=== PATIENT | female | born 1995 | race Caucasian/White ===

== ENCOUNTER 2016-10-03 07:20 | Day surgery (SDC) | payer OTHER, MEDICAID ==
[~2016-10-03] VITALS: Ht 165.1 cm; Wt 79.4 kg
[2016-10-03] MEDS ORDERED: ONDANSETRON 4MG/2ML VIAL (J2405) As Ordered ONE ×2 (08:00→13:07)
[2016-10-03] MEDS ORDERED: KETOROLAC 30 MG/ML VIAL (J1885) As Ordered ONE (08:01)
[2016-10-03 08:14] LABS: BASO # 0.1 K/mm3 (0.0-0.2); BASO % 0.7 % (0.0-1.0); EOS # 0.2 K/mm3 (0.0-0.50); EOS % 1.1 % (0.0-3.0); LARGE UNSTAINED CELL # 0.1 K/mm3 (0.0-0.4); LARGE UNSTAINED CELL % 0.5 % (0.0-4.0); LYMPH # 1.2 K/mm3 (1.5-6.5); LYMPH % 7.9 % (24.0-44.0); MEAN CORPUSCULAR HEMOGLOBIN 30.4 pg (27.0-33.0); MEAN CORPUSCULAR HGB CONC 33.7 g/dl (32.0-36.5); MEAN CORPUSCULAR VOLUME 90.2 fl (80.0-96.0); MONO # 0.7 K/mm3 (0.0-0.8); MONO % 5.2 % (0.0-5.0); NEUTROPHILS # 12.1 K/mm3 (1.8-7.7); NEUTROPHILS % 84.7 % (36.0-66.0); PLATELET COUNT, AUTOMATED 232 k/mm3 (150-450); RED CELL DISTRIBUTION WIDTH 12.8 % (11.5-14.5); WHITE BLOOD COUNT 14.3 K/mm3 (4.0-10.0)
[2016-10-03 08:37] LABS: ALBUMIN 3.8 GM/DL (3.2-5.2); ALBUMIN/GLOBULIN RATIO 1.03 (1.00-1.93); ALKALINE PHOSPHATASE 80 U/L (45-117); ALT/SGPT 19 U/L (12-78); ANION GAP 8 MEQ/L (8-16); AST/SGOT 12 U/L (15-37); BILIRUBIN,DIRECT 0.1 MG/DL (0.0-0.2); BILIRUBIN,TOTAL 0.6 MG/DL (0.2-1.0); BLOOD UREA NITROGEN 13 MG/DL (7-18); CALCIUM LEVEL 9.1 MG/DL (8.5-10.1); CARBON DIOXIDE LEVEL 27 MEQ/L (21-32); CHLORIDE LEVEL 107 MEQ/L (98-107); CREATININE FOR GFR 0.94 MG/DL (0.55-1.02); GLUCOSE, FASTING 85 MG/DL (70-105); POTASSIUM SERUM 3.7 MEQ/L (3.5-5.1); SODIUM LEVEL 142 MEQ/L (136-145); TOTAL PROTEIN 7.5 GM/DL (6.4-8.2)
[2016-10-03] MEDS ORDERED: ISOVUE-370 76% 100ML VIAL (Q9967) As Ordered ONE (08:41)
[2016-10-03] MEDS ORDERED: MORPHINE 4 MG/ML 1ML SYRINGE As Ordered ONE (09:48)
[2016-10-03] MEDS ORDERED: ZOSYN 3.375 GM VIAL (J2543) As Ordered ONE (11:33)
[2016-10-03] MEDS ORDERED: fentaNYL 100 MCG/2 ML INJECTION (J3010) As Ordered ONE (11:37)
[2016-10-03] MEDS ORDERED: BUPIVACAINE/EPIN 0.25% 30 ML VIAL As Ordered ONE (11:53)
[2016-10-03] MEDS ORDERED: ROCURONIUM BROMIDE 50 MG/5 ML VIAL As Ordered ONE (12:01)
[2016-10-03] MEDS ORDERED: LIDOCAINE 2% INJ 100 MG/5 ML SDV (FOR ANES.) As Ordered ONE (12:01)
[2016-10-03] MEDS ORDERED: ceFAZolin 1GM INJ (J0690) As Ordered ONE (12:01)
[2016-10-03] MEDS ORDERED: PROPOFOL 200 MG/20 ML VIAL As Ordered ONE (12:01)
[2016-10-03] MEDS ORDERED: MIDAZOLAM INJ 2 MG/2 ML VIAL (J2250) As Ordered ONE (12:03)
[2016-10-03] MEDS ORDERED: SUCCINYLCHOLINE 100 MG/5 ML SYRINGE (J0330) As Ordered ONE (12:04)
[2016-10-03] MEDS ORDERED: dexameTHASONE 4 MG/ML 1ML VIAL (J1100) As Ordered ONE ×2 (12:04→12:05)
[2016-10-03] MEDS ORDERED: fentaNYL 250 MCG/5 ML INJECTION (J3010) As Ordered ONE (12:04)
--- NOTE | 2016-10-03 12:18 | EDDOCDS ---
Physician Documentation [facility] Name: Rupa Castellanos Age: 21 yrs Sex: Female : 1995 Arrival Date: 10/03/2016 Time: 07:20 Bed I3 / M3 Private MD: Disposition: 10/03/16 11:10 Hospitalization ordered by Kole Carlos for Inpatient Admission. Preliminary diagnosis is Acute appendicitis. - Bed requested for Admit. - Status is Inpatient Admission. ttb - Condition is Stable. - Problem is new. - Symptoms have improved. Historical: - Allergies: no known allergies; - Home Meds: 1. control pill daily 2. ibuprofen 1000 mg Oral tab prn (Last dose: 10/03/2016 06:30) - PMHx: none; - PSHx: none; - Social history: Smoking status: Patient states was never smoker of tobacco. No barriers to communication noted, The patient speaks fluent German. - Family history: Not pertinent. - : The pt / caregiver states he / she is not on anticoagulants. Home medication list is obtained from the patient. - Exposure Risk Screening:: None identified. 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 5 in. (165.10 cm) (R); Pain 6/10; 10:38 BP 105 / 61 RA Sitting (auto/reg); Pulse 73; Resp 20; Temp 97.9(O); Pulse Ox 98% on bnb R/A; Pain 5/10; 10:53 Resp 16; Pain 5/10; ttb 12:06 BP 98 / 62; Pulse 84; Resp 20; Temp 98.0(O); Pulse Ox 100% on R/A; Pain 4/10; jml1 07:30 Body Mass Index 29.12 (79.38 kg, 165.10 cm) jjr MDM: 07:42 NS 0.9% 1000 ml IV at bolus once ordered. cc10 07:42 Ondansetron 4 mg IVP once ordered. cc10 07:42 ketorolac 30 mg IVP once ordered. cc10 07:42 IV Saline Lock ordered. cc10 07:42 Undress patient appropriately for examination ordered. cc10 07:42 UCG by Nursing ordered. cc10 07:43 Basic Metabolic Profile Ordered. EDMS 07:43 CBC with Diff Ordered. EDMS 07:43 Lipase Ordered. EDMS 07:43 Liver Profile Ordered. EDMS 07:43 Urinalysis Ordered. EDMS 07:44 NOTHING BY MOUTH+DIET ordered. EDMS 08:15 Financial registration complete. mm15 08:28 CBC with Diff Reviewed. cc10 08:28 Urinalysis Reviewed. cc10 08:32 CT ABD & PELVIS: IV Contrast Only Ordered. EDMS 08:41 [facility] [place] was scanned into [employer] and attached to record. mm15 08:41 Liver Profile Reviewed. cc10 08:41 Basic Metabolic Profile Reviewed. cc10 08:41 Lipase Reviewed. cc10 09:46 morphine 4 mg IVP once ordered. cc10 11:05 BED REQUEST+ADM ordered. EDMS 11:23 Piperacillin-Tazobactam 3.375 grams IVPB once over 30 mins; dilute in 50mL of NS or D5W cc10 ordered. 11:30 fentaNYL (PF) 25 mcg IVP once ordered. cc10 11:31 Misc. Nursing Order ordered. cc10 11:57 Admission Orders was scanned into [employer] and attached to record. mm15 12:10 LR Solution 1000 ml IV at 125 mL/hr once via Pump; Dr. Carlos instructions ordered. ttb 12:10 ceFAZolin 2 grams IVPB once over 30 mins; dilute in 50mL of NS or D5W ONCALL TO OR ttb ordered. Point of Care Testing: Urine : 07:46 hCG Reading: Negative; Control Reading: Positive; bnb Ranges: Administered Medications: 08:06 Drug: NS 0.9% 1000 ml [sodium chloride 0.9 % intravenous solution] Route: IV; Rate: jjr bolus; Site: left antecubital; : Follow up: Response: No Adverse Reaction; IV Status: Completed infusion; IV Intake: ttb 1000ml 08:06 Drug: Ondansetron 4 mg [ondansetron HCl 2 mg/mL intravenous solution (2 mL)] Route: jjr IVP; Site: left antecubital; :52 Follow up: Response: Nausea is resolved; No Adverse Reaction ttb 08:06 Drug: ketorolac 30 mg [ketorolac 30 mg/mL (1 mL) injection solution (1 mL)] Route: IVP; jjr Site: left antecubital; 09:52 Follow up: Response: No Adverse Reaction ttb 09:51 Drug: morphine 4 mg [morphine 4 mg/mL intravenous cartridge (1 mL)] Route: IVP; Site: ttb left antecubital; 10:53 Follow up: Resp 16 bpm; Pain 5/10 Adult; Response: Confirmed pt not driving.; No ttb Adverse Reaction; Pain is decreased 11:45 Drug: fentaNYL (PF) 25 mcg [fentanyl (PF) 50 mcg/mL injection solution (0.5 mL)] Route: ttb IVP; Site: left antecubital; 12:12 Follow up: Response: Confirmed pt not driving.; No Adverse Reaction ttb 11:49 Drug: NS 0.9% 50 ml, Piperacillin-Tazobactam 3.375 grams Route: IVPB; Infused Over: 30 ttb mins; Site: left antecubital; Delivery: Pump; 12:16 Follow up: Response: No Adverse Reaction; IV Status: Completed infusion; IV Intake: 50mlttb 12:10 Drug: LR 1000 ml [lactated ringers intravenous solution] Route: IV; Rate: 125 mL/hr; ttb Site: left antecubital; Delivery: Pump; Signatures: Dispatcher [employer] Catalina Owens RN RN jjr Conner, Teresa, RN RN ttb Lacey Putnam mm15 Roni Guthrie PA-C PA-C cc10 The chart was reviewed and I authenticate all verbal orders and agree with the evaluation and treatment provided.Attachments: 08:41 [facility] Payment Agreement mm15 11:57 Admission Orders mm15 MTDD
--- NOTE | 2016-10-03 12:19 | EDDOCDS ---
Nurse's Notes [facility] Name: Rupa Castellanos Age: 21 yrs Sex: Female : 1995 Arrival Date: 10/03/2016 Time: 07:20 Bed I3 / M3 Private MD: Diagnosis: Acute appendicitis Presentation: 10/03 07:24 Presenting complaint: Patient states: yesterday while moving developed substernal chest jjr pain radiating to anterior chest sharp intermittent since then, RLQ pain began yesterday evening sharp in nature reports nausea began 0100 with one episode of vomiting reports diarrhea yesterday and this morning. Risk factors: the patient reports no vaginal bleeding. Adult Sepsis Screening: The patient does not have new or worsening altered mentation. Patient's respiratory rate is less than 22. Systolic blood pressure is greater than 100. Patient has a qSOFA score of 0- Negative Sepsis Screen. Suicide/Homicide risk assessment- the patient denies having any suicidal and/or homicidal ideations and does not present with any other emotional, behavioral or mental health complaints. Status: Patient is not a pool servicer or dependent. Transition of care: patient was not received from another setting of care. 07:24 Acuity: NADIRA Level 3 jjr 07:24 Method Of Arrival: Walkin/Carried/Asstd jjr Triage Assessment: 07:31 General: Appears in no apparent distress. Pain: Location: right lower quadrant. Pt jjr Declines HIV testing. GI: Reports diarrhea, lower abdominal pain, nausea, vomiting. 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 control pill daily 2. ibuprofen 1000 mg Oral tab prn (Last dose: 10/03/2016 06:30) - PMHx: none; - PSHx: none; - Social history: Smoking status: Patient states was never smoker of tobacco. No barriers to communication noted, The patient speaks fluent Maori. - Family history: Not pertinent. - : The pt / caregiver states he / she is not on anticoagulants. Home medication list is obtained from the patient. - Exposure Risk Screening:: None identified. Screenin:06 Screening information is obtained from the patient. Fall risk: No risks identified. jjr Assistance ADL's: requires no assistance with activities of daily living. Abuse/DV Screen: The patient / caregiver reports he/she is: not in a situation that causes fear, pain or injury. Nutritional screening: No deficits noted. Advance Directives: There is no active DNR order. home support is adequate. Assessment: 07:57 General: Appears in no apparent distress, well nourished, well groomed, Behavior is jjr appropriate for age. Pain: Aggravated by increased activity. Neurological: No deficits noted. Respiratory: No deficits noted. GI: Abdomen is non- distended Bowel sounds present X 4 quads. Abd is soft X 4 quads Abd is tender to palpation in umbilical area and right lower quadrant. GI: Reports lower abdominal pain, nausea. Derm: No deficits noted. 08:57 General: Appears in no apparent distress, denies any chest pain since arrival, RLQ pain jjr more pressure in nature at this time. 09:36 General: report taken from ROBERT Arnold to continue care. Pt resting on stretcher, on ttb phone. NAD noted. . General: Appears in no apparent distress, comfortable, well nourished, well groomed, Behavior is appropriate for age, pleasant. Neurological: No deficits noted. Level of Consciousness is awake, alert. Respiratory: No deficits noted. Airway is patent. 09:52 General: Appears in no apparent distress, comfortable, pt given morphine per request. ttb States mother is going to come get her. . Neurological: No deficits noted. Cardiovascular: Chest pain is denied. Respiratory: Airway is patent Respiratory effort is even, unlabored, Breath sounds are clear bilaterally. Denies cough, shortness of breath. GI: Denies nausea. Injury Description: No known injury. 10:45 General: Appears in no apparent distress, comfortable. Pain: Location: RLQ abd improved ttb after morphine. Neurological: Level of Consciousness is awake, alert. Respiratory: No deficits noted. 10:45 Adult Sepsis Screening: The patient does not have new or worsening altered mentation. ttb Patient's respiratory rate is less than 22. Systolic blood pressure is greater than 100. Patient has a qSOFA score of 0- Negative Sepsis Screen. 11:45 Reassessment: Patient appears in no apparent distress at this time. pt signed consents ttb signed and pt is awaiting transfer to OR. Pt given meds as ordered. Aware NPO still. . 11:45 General: Appears in no apparent distress, comfortable. Neurological: Level of ttb Consciousness is awake, alert. Respiratory: No deficits noted. 12:14 Reassessment: Patient appears in no apparent distress at this time. Patient states ttb feeling better. pain improved after meds. Pt transferred to OR at this time.. General: Appears in no apparent distress, comfortable. Neurological: Level of Consciousness is awake, alert. Cardiovascular: Chest pain is denied. Respiratory: No deficits noted. Airway is patent Respiratory effort is even, unlabored. GI: Denies nausea, vomiting. Vital Signs: 07:30 BP 124 / 71; Pulse 102; Resp 18; Temp 97.6(O); Pulse Ox 96% on R/A; Weight 79.38 kg jjr (R); Height 5 ft. 5 in. (165.10 cm) (R); Pain 6/10; 10:38 BP 105 / 61 RA Sitting (auto/reg); Pulse 73; Resp 20; Temp 97.9(O); Pulse Ox 98% on bnb R/A; Pain 5/10; 10:53 Resp 16; Pain 5/10; ttb 12:06 BP 98 / 62; Pulse 84; Resp 20; Temp 98.0(O); Pulse Ox 100% on R/A; Pain 4/10; jml1 07:30 Body Mass Index 29.12 (79.38 kg, 165.10 cm) [facility] Vitals: 07:27 Log In Time: October 03, 2016 at 07:20. [facility] ED Course: 07:22 Patient visited by Arlet Mckinley Reg. hs2 07:22 Patient moved to Waiting hs2 07:27 Triage Initiated jjr 07:34 Catalina Sparks, ROBERT is Primary Nurse. jjr 07:34 Patient moved to I3 / M3 jjr 07:37 Roni Guthrie PA-C is PHCP. cc10 07:37 Odalis Contreras MD is Attending Physician. cc10 07:37 Patient visited by Roni Guthrie PA-C. cc10 07:37 Patient visited by Roni Guthrie PA-C. cc10 07:52 Patient visited by Jayla Chaney PCA. bnb 07:52 Urinalysis Sent. bnb 07:57 Basic Metabolic Profile Sent. jjr 07:57 CBC with Diff Sent. jjr 07:57 Lipase Sent. jjr 07:57 Liver Profile Sent. jjr 07:58 Patient visited by Catalina Sparks, RN. jjr 07:58 The patient / caregiver is instructed regarding the plan of care and ED course. jjr 07:58 Inserted saline lock: 20 gauge in left antecubital area and blood collected. Labs jjr drawn. (by ED staff). Sent per order to lab. Urine collected. Clean catch specimen. Urine specimen sent to lab. 08:41 [place] [place] was [place] into [employer] and attached to record. mm15 08:50 Patient visited by Tutu Ceballos. jml1 08:58 Patient visited by Catalina Sparks, ROBERT. jjr 09:23 Patient name changed from Rupa\S\\S\Castellanos\S\ to Rupa\S\ \S\Castellanos. EDMS 09:36 Patient visited by Albina Neves RN. ttb 09:36 Patient has correct armband on for positive identification. ttb 09:36 No procedures done that require assistance. ttb 09:37 Patient visited by lAbina Neves RN. ttb 09:53 Patient visited by Albina Neves RN. ttb 10:39 Patient visited by Jayla Chaney PCA. bnb 11:10 Kole Carlos DO is Hospitalizing Provider. cc10 11:52 Patient visited by Albina Neves RN. ttb 11:57 Admission Orders was scanned into [employer] and attached to record. mm15 12:07 Patient visited by Tutu Ceballos. jml1 Administered Medications: 08:06 Drug: NS 0.9% 1000 ml [sodium chloride 0.9 % intravenous solution] Route: IV; Rate: jjr bolus; Site: left antecubital; :52 Follow up: Response: No Adverse Reaction; IV Status: Completed infusion; IV Intake: ttb 1000ml 08:06 Drug: Ondansetron 4 mg [ondansetron HCl 2 mg/mL intravenous solution (2 mL)] Route: jjr IVP; Site: left antecubital; :52 Follow up: Response: Nausea is resolved; No Adverse Reaction ttb 08:06 Drug: ketorolac 30 mg [ketorolac 30 mg/mL (1 mL) injection solution (1 mL)] Route: IVP; jjr Site: left antecubital; 09:52 Follow up: Response: No Adverse Reaction ttb 09:51 Drug: morphine 4 mg [morphine 4 mg/mL intravenous cartridge (1 mL)] Route: IVP; Site: ttb left antecubital; 10:53 Follow up: Resp 16 bpm; Pain 5/10 Adult; Response: Confirmed pt not driving.; No ttb Adverse Reaction; Pain is decreased 11:45 Drug: fentaNYL (PF) 25 mcg [fentanyl (PF) 50 mcg/mL injection solution (0.5 mL)] Route: ttb IVP; Site: left antecubital; 12:12 Follow up: Response: Confirmed pt not driving.; No Adverse Reaction ttb 11:49 Drug: NS 0.9% 50 ml, Piperacillin-Tazobactam 3.375 grams Route: IVPB; Infused Over: 30 ttb mins; Site: left antecubital; Delivery: Pump; 12:16 Follow up: Response: No Adverse Reaction; IV Status: Completed infusion; IV Intake: 50mlttb 12:10 Drug: LR 1000 ml [lactated ringers intravenous solution] Route: IV; Rate: 125 mL/hr; ttb Site: left antecubital; Delivery: Pump; Point of Care Testing: Urine : 07:46 hCG Reading: Negative; Control Reading: Positive; bnb Ranges: Intake: 09:52 IV: 1000.00ml; Total: 1000.00ml. ttb 12:16 IV: 50.00ml; Total: 1050.00ml. ttb Order Results: Lab Order: Basic Metabolic Profile; SPEC'M 10/03/16 07:55 Test: GLUCOSE, FASTING; Value: 85; Range: 70-105; Units: MG/DL; Status: F Test: BLOOD UREA NITROGEN; Value: 13; Range: 7-18; Units: MG/DL; Status: F Test: CREATININE FOR GFR; Value: 0.94; Range: 0.55-1.02; Units: MG/DL; Status: F Test: SODIUM LEVEL; Value: 142; Range: 136-145; Units: MEQ/L; Status: F Test: POTASSIUM SERUM; Value: 3.7; Range: 3.5-5.1; Units: MEQ/L; Status: F Test: CHLORIDE LEVEL; Value: 107; Range: 98-107; Units: MEQ/L; Status: F Test: CARBON DIOXIDE LEVEL; Value: 27; Range: 21-32; Units: MEQ/L; Status: F Test: ANION GAP; Value: 8; Range: 8-16; Units: MEQ/L; Status: F Test: CALCIUM LEVEL; Value: 9.1; Range: 8.5-10.1; Units: MG/DL; Status: F Lab Order: CBC with Diff; SPEC'M 10/03/16 07:55 Test: WHITE BLOOD COUNT; Value: 14.3; Range: 4.0-10.0; Abnormal: Above high normal; Units: K/mm3; Status: F Test: RED BLOOD COUNT; Value: 4.56; Range: 4.00-5.40; Units: M/mm3; Status: F Test: HEMOGLOBIN; Value: 13.8; Range: 12.0-16.0; Units: g/dl; Status: F Test: HEMATOCRIT; Value: 41.1; Range: 36.0-47.0; Units: %; Status: F Test: MEAN CORPUSCULAR VOLUME; Value: 90.2; Range: 80.0-96.0; Units: fl; Status: F Test: MEAN CORPUSCULAR HEMOGLOBIN; Value: 30.4; Range: 27.0-33.0; Units: pg; Status: F Test: MEAN CORPUSCULAR HGB CONC; Value: 33.7; Range: 32.0-36.5; Units: g/dl; Status: F Test: RED CELL DISTRIBUTION WIDTH; Value: 12.8; Range: 11.5-14.5; Units: %; Status: F Test: PLATELET COUNT, AUTOMATED; Value: 232; Range: 150-450; Units: k/mm3; Status: F Test: NEUTROPHILS %; Value: 84.7; Range: 36.0-66.0; Abnormal: Above high normal; Units: %; Status: F Test: LYMPH %; Value: 7.9; Range: 24.0-44.0; Abnormal: Below low normal; Units: %; Status: F Test: MONO %; Value: 5.2; Range: 0.0-5.0; Abnormal: Above high normal; Units: %; Status: F Test: EOS %; Value: 1.1; Range: 0.0-3.0; Units: %; Status: F Test: BASO %; Value: 0.7; Range: 0.0-1.0; Units: %; Status: F Test: LARGE UNSTAINED CELL %; Value: 0.5; Range: 0.0-4.0; Units: %; Status: F Test: NEUTROPHILS #; Value: 12.1; Range: 1.8-7.7; Abnormal: Above high normal; Units: K/mm3; Status: F Test: LYMPH #; Value: 1.2; Range: 1.5-6.5; Abnormal: Below low normal; Units: K/mm3; Status: F Test: MONO #; Value: 0.7; Range: 0.0-0.8; Units: K/mm3; Status: F Test: EOS #; Value: 0.2; Range: 0.0-0.50; Units: K/mm3; Status: F Test: BASO #; Value: 0.1; Range: 0.0-0.2; Units: K/mm3; Status: F Test: LARGE UNSTAINED CELL #; Value: 0.1; Range: 0.0-0.4; Units: K/mm3; Status: F Lab Order: Lipase; SPEC' 10/03/16 07:55 Test: LIPASE; Value: 104; Range: 73-393; Units: U/L; Status: F Lab Order: Liver Profile; SPEC'M 10/03/16 07:55 Test: AST/SGOT; Value: 12; Range: 15-37; Abnormal: Below low normal; Units: U/L; Status: F Test: ALT/SGPT; Value: 19; Range: 12-78; Units: U/L; Status: F Test: ALKALINE PHOSPHATASE; Value: 80; Range: 45-117; Units: U/L; Status: F Test: BILIRUBIN,TOTAL; Value: 0.6; Range: 0.2-1.0; Units: MG/DL; Status: F Test: BILIRUBIN,DIRECT; Value: 0.1; Range: 0.0-0.2; Units: MG/DL; Status: F Test: TOTAL PROTEIN; Value: 7.5; Range: 6.4-8.2; Units: GM/DL; Status: F Test: ALBUMIN; Value: 3.8; Range: 3.2-5.2; Units: GM/DL; Status: F Test: ALBUMIN/GLOBULIN RATIO; Value: 1.03; Range: 1.00-1.93; Status: F Lab Order: Urinalysis; SPEC'M 10/03/16 07:45 Test: APPEARANCE, URINE; Value: CLEAR; Range: CLEAR; Status: F Test: COLOR, URINE; Value: YELLOW; Range: YELLOW; Status: F Test: PH,URINE; Value: 5.0; Range: 5.0-9.0; Units: UNITS; Status: F Test: SPECIFIC GRAVITY URINE AUTO; Value: 1.019; Range: 1.002-1.035; Status: F Test: PROTEIN, URINE AUTO; Value: 1+; Range: NEGATIVE; Abnormal: Above high normal; Units: mg/dL; Status: F Test: GLUCOSE, URINE (UA) AUTO; Value: NEGATIVE; Range: NEGATIVE; Units: mg/dL; Status: F Test: KETONE, URINE AUTO; Value: NEGATIVE; Range: NEGATIVE; Units: mg/dL; Status: F Test: UROBILINOGEN, URINE AUTO; Value: 0.2; Range: 0.0-2.0; Units: mg/dL; Status: F Test: BILIRUBIN, URINE AUTO; Value: NEGATIVE; Range: NEGATIVE; Status: F Test: NITRITE, URINE AUTO; Value: NEGATIVE; Range: NEGATIVE; Status: F Test: LEUKOCYTE ESTERASE, URINE AUTO; Value: NEGATIVE; Range: NEGATIVE; Status: F Test: BLOOD, URINE BLOOD; Value: NEGATIVE; Range: NEGATIVE; Status: F Test: WBC, URINE AUTO; Value: 1; Range: 0-3; Units: /HPF; Status: F Test: RBC, URINE AUTO; Value: 1; Range: 0-3; Units: /HPF; Status: F Test: BACTERIA, URINE AUTO; Value: NEGATIVE; Range: NEGATIVE; Status: F Test: SQUAMOUS EPITHELIAL CELL UR AU; Value: 2; Range: 0-6; Units: /HPF; Status: F Test: MUCUS, URINE; Value: SMALL; Range: NEGATIVE; Status: F Test: HYALINE CAST, URINE AUTO; Value: 0; Range: 0-1; Units: /LPF; Status: F Outcome: 09:36 CT Study completed. ttb 11:10 Decision to Hospitalize by Provider. cc10 12:14 Discharge Assessment: Patient awake, alert and oriented x 3. No cognitive and/or ttb functional deficits noted. Patient verbalized understanding of disposition instructions. Patient awake and alert. patient administered narcotics - yes. Patient was admitted to the hospital or transferred to another facility. The following High Risk Discharge criteria are identified: Yes, admit to OR at this time. SDS. Admitted to OR accompanied by nurse, accompanied by tech, family with patient, via stretcher, with chart. Condition: good Condition: stable Condition: improved. Instructed on OR process/SDS process. Admission hand-off: Other: verbal to OR staff . Property given to family member, Alex ANDRES. 12:18 Patient left the ED. ttb Signatures: Dispatcher [employer] EDCatalina Gonzáles, RN RN Tutu Suarez jml1 Albina Neves RN RN ttb Lacey Putnam mm15 Roni Guthrie, PA-C PA-C cc10 Arlet Mckinley, Reg Reg hs2 Jayla Chaney, LEATHER CRAFTER LEATHER CRAFTER bnb MTDD
[2016-10-03] MEDS ORDERED: IBUPOTC PO (12:21)
[2016-10-03] MEDS ORDERED: [UNRECOGNIZED DRUG - REMARK] PO (12:21)
[2016-10-03] MEDS ORDERED: KETOROLAC 60 MG/2 ML VIAL (J1885) As Ordered ONE (13:07)
[2016-10-03] MEDS ORDERED: SUGAMMADEX SODIUM 500 MG/5 ML VIAL (BRIDION) As Ordered ONE (13:13)
[2016-10-03] MEDS ORDERED: NORC5TAB PO (13:30)
[2016-10-03 14:15] VITALS: BP 117/73
[2016-10-03] MEDS ORDERED: ONDANSETRON 4MG/2ML VIAL (J2405) IV PRN (14:15)
[2016-10-03] MEDS ORDERED: NORCO, ANEXSIA 5/325MG TABLET (HYDROcodone/ACETAMINOPHEN) PO PRN (14:15)
[2016-10-03] MEDS ORDERED: LR 1,000 ML IV SCH (14:15)
[2016-10-03] MEDS ORDERED: fentaNYL 100 MCG/2 ML INJECTION (J3010) IV PRN (14:15)
[2016-10-03 14:45] VITALS: BP 123/73
[2016-10-03 15:45] VITALS: BP 117/71
[2016-10-03 16:45] VITALS: BP 133/72
--- NOTE | 2016-10-05 08:30 | REP ---
CT abdomen pelvis with IV contrast, without bowel contrast: The appendix is distended measuring up to 11 meters mm transverse diameter. However, there is no appendiceal wall thickening or periappendiceal inflammation or abscess. This may represent early or developing appendicitis. There is no ascites or adenopathy. The visualized lung [place] are unremarkable. The hepatic parenchyma, gallbladder, pancreas, spleen, adrenals, kidneys and abdominal aorta are unremarkable. Bowel and mesentery are unremarkable. Pelvis: There are bilateral adnexal follicles. The uterus is unremarkable. There is no ascites or adenopathy. The pelvic bowel loops are unremarkable. Impression: The appendix is distended measuring up to 11 mm transverse diameter. There is no wall thickening or periappendiceal inflammation or abscess. The finding is nonspecific but may represent developing appendicitis. Gallbladder, uterus and adnexa are unremarkable except for bilateral adnexal follicles. No ascites or adenopathy. Signed by Kole Hernandez MD 10/03/2016 09:21 A
--- NOTE | 2016-10-05 08:31 | ER ---
DATE OF CONSULTATION: 10/03/2016 Reason for consult is right lower quadrant abdominal pain. HISTORY OF PRESENT ILLNESS: Patient is a 21-year-old female who presents with right lower quadrant abdominal pain that started early this morning. She had some epigastric pain and nausea starting last evening. This morning it turned into right lower quadrant pain. She had some nausea and vomiting at home, nothing since she has been here. Pain has been getting progressively worse. It is localized to the right lower quadrant and it has been unchanged since she has been here despite pain medications. White count was slightly elevated at around 12. However, CT scan showed findings of acute appendicitis. Therefore, I was called to evaluate the patient. On exam, patient has tenderness in the right lower quadrant. Denies any other problems. No recent trauma to the area. No previous surgeries. PAST MEDICAL HISTORY: Negative. PAST SURGICAL HISTORY: Negative. ALLERGIES: None. HOME MEDICATIONS: - vitamins - ibuprofen SOCIAL HISTORY: Denies drug, alcohol and tobacco usage. FAMILY HISTORY: Noncontributory. REVIEW OF SYSTEMS: Pertinent positives negative except stated in HPI. PHYSICAL EXAMINATION General: Alert and oriented times three. No acute stress. Vital signs: Stable, afebrile. HEENT: Pupils equal, round, react to light and accommodation. Heart: S1, S2, regular rate and rhythm. Lungs: Clear auscultation bilaterally. Abdomen: Soft. Tender to palpation right lower quadrant. No rebounding or rigidity. Bowel sounds positive. Extremities: No clubbing, cyanosis or edema. LABORATORY DATA: White count 14.3, hemoglobin 13.8, platelets 232, potassium 3.7. IMAGING: CT abdomen and pelvis shows the appendix is distended, measuring up to 11 mm in diameter. No wall thickening or periappendiceal inflammation or abscess. Findings nonspecific but may represent developing appendicitis, ascites. However, on my review, the appendix definitely is dilated with a thickened wall. ASSESSMENT AND PLAN: Again, patient is 21-year-old female with acute appendicitis. Recommendation is to proceed with laparoscopic, possible open appendectomy. Risks and benefits of the procedure not limited but including bleeding, infection, hernia formation, damage to surrounding structures, need for further surgery was discussed in detail with the patient. Informed consent was obtained and procedure was planned. Postoperatively, she will be discharged home and followup with me in the office in 2 weeks.
--- NOTE | 2016-10-05 08:32 | RO ---
DATE OF PROCEDURE: 10/03/2016 PREOPERATIVE DIAGNOSIS: Acute appendicitis. POSTOPERATIVE DIAGNOSIS: Acute appendicitis. PROCEDURE: Laparoscopic appendectomy. SURGEON: Kole Carlos DO SUPERVISOR ROSE GRADING: None. ANESTHESIA: General. ESTIMATED BLOOD LOSS (EBL): 5. COMPLICATION: None. INDICATION FOR PROCEDURE: Patient is a 21-year-old female presents with right lower quadrant abdominal pain found to have CT findings of acute appendicitis on CAT scan. Recommendation to proceed with laparoscopic, possible open appendectomy. Risks and benefits of the procedure not limited to but including bleeding, infection, hernia formation, damage to surrounding structure, need for further surgery were discussed in detail with the patient. Informed consent was obtained and procedure was planned. DESCRIPTION OF PROCEDURE: Patient brought back to operating room #3. After sufficient sedation, the abdomen was sterilely prepped and draped. Next, time-out was done to confirm proper patient, proper procedure. Following that a 5 mm incision made in the left lower quadrant. Veress needle was inserted and the abdomen was insufflated to 50 mmHg. Next, the Veress needle was removed. A 5 mm Optiview port was used to gain access to the abdomen. Once the abdomen was entered, the appendix was clearly visible protruding above the omentum in the right lower quadrant. An 8 mm port was placed at the umbilicus. Another 5 mm port suprapubically. Enseal was then used to ligate through the mesoappendix all the way to the base of the cecum. Once this was completed, the base of the appendix was ligated twice with PDS Endoloops and then the appendix was transected using the Enseal. The appendix was brought out at the umbilical site through a through 5 mm EndoCatch bag. The abdomen was examined to confirm hemostasis. The abdomen was then desufflated. Skin incision closed #4-0 Vicryl subcuticular sutures. The abdomen was cleaned and dried. Steri-Strips, 4 x 4 and tape were applied, thus ending procedure.
--- NOTE | 2016-10-05 13:19 | EDDOCDS ---
Physician Documentation [facility] Name: Rupa Castellanos Age: 21 yrs Sex: Female : 1995 Arrival Date: 10/03/2016 Time: 07:20 Bed I3 / M3 Private MD: Disposition: 10/03/16 11:10 Hospitalization ordered by Kole Carlos for Inpatient Admission. Preliminary diagnosis is Acute appendicitis. - Bed requested for Admit. - Status is Inpatient Admission. ttb - Condition is Stable. - Problem is new. - Symptoms have improved. Historical: - Allergies: no known allergies; - Home Meds: 1. control pill daily 2. ibuprofen 1000 mg Oral tab prn (Last dose: 10/03/2016 06:30) - PMHx: none; - PSHx: none; - Social history: Smoking status: Patient states was never smoker of tobacco. No barriers to communication noted, The patient speaks fluent Guamanian. - Family history: Not pertinent. - : The pt / caregiver states he / she is not on anticoagulants. Home medication list is obtained from the patient. - Exposure Risk Screening:: None identified. 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 5 in. (165.10 cm) (R); Pain 6/10; 10:38 BP 105 / 61 RA Sitting (auto/reg); Pulse 73; Resp 20; Temp 97.9(O); Pulse Ox 98% on bnb R/A; Pain 5/10; 10:53 Resp 16; Pain 5/10; ttb 12:06 BP 98 / 62; Pulse 84; Resp 20; Temp 98.0(O); Pulse Ox 100% on R/A; Pain 4/10; jml1 07:30 Body Mass Index 29.12 (79.38 kg, 165.10 cm) jjr MDM: 07:42 NS 0.9% 1000 ml IV at bolus once ordered. cc10 07:42 Ondansetron 4 mg IVP once ordered. cc10 07:42 ketorolac 30 mg IVP once ordered. cc10 07:42 IV Saline Lock ordered. cc10 07:42 Undress patient appropriately for examination ordered. cc10 07:42 UCG by Nursing ordered. cc10 07:43 Basic Metabolic Profile Ordered. EDMS 07:43 CBC with Diff Ordered. EDMS 07:43 Lipase Ordered. EDMS 07:43 Liver Profile Ordered. EDMS 07:43 Urinalysis Ordered. EDMS 07:44 NOTHING BY MOUTH+DIET ordered. EDMS 08:15 Financial registration complete. mm15 08:28 CBC with Diff Reviewed. cc10 08:28 Urinalysis Reviewed. cc10 08:32 CT ABD & PELVIS: IV Contrast Only Ordered. EDMS 08:41 [facility] [place] was scanned into [email or web address] and attached to record. mm15 08:41 Liver Profile Reviewed. cc10 08:41 Basic Metabolic Profile Reviewed. cc10 08:41 Lipase Reviewed. cc10 09:46 morphine 4 mg IVP once ordered. cc10 11:05 BED REQUEST+ADM ordered. EDMS 11:23 Piperacillin-Tazobactam 3.375 grams IVPB once over 30 mins; dilute in 50mL of NS or D5W cc10 ordered. 11:30 fentaNYL (PF) 25 mcg IVP once ordered. cc10 11:31 Misc. Nursing Order ordered. cc10 11:57 Admission Orders was scanned into [email or web address] and attached to record. mm15 12:10 LR Solution 1000 ml IV at 125 mL/hr once via Pump; Dr. Carlos instructions ordered. ttb 12:10 ceFAZolin 2 grams IVPB once over 30 mins; dilute in 50mL of NS or D5W ONCALL TO OR ttb ordered. 12:57 T-Sheet-- Draft Copy was scanned into [email or web address] and attached to record. [facility] Point of Care Testing: Urine : 07:46 hCG Reading: Negative; Control Reading: Positive; bnb Ranges: Administered Medications: 08:06 Drug: NS 0.9% 1000 ml [sodium chloride 0.9 % intravenous solution] Route: IV; Rate: jjr bolus; Site: left antecubital; 09:52 Follow up: Response: No Adverse Reaction; IV Status: Completed infusion; IV Intake: ttb 1000ml 08:06 Drug: Ondansetron 4 mg [ondansetron HCl 2 mg/mL intravenous solution (2 mL)] Route: jjr IVP; Site: left antecubital; 09:52 Follow up: Response: Nausea is resolved; No Adverse Reaction ttb 08:06 Drug: ketorolac 30 mg [ketorolac 30 mg/mL (1 mL) injection solution (1 mL)] Route: IVP; jjr Site: left antecubital; 09:52 Follow up: Response: No Adverse Reaction ttb 09:51 Drug: morphine 4 mg [morphine 4 mg/mL intravenous cartridge (1 mL)] Route: IVP; Site: ttb left antecubital; 10:53 Follow up: Resp 16 bpm; Pain 5/10 Adult; Response: Confirmed pt not driving.; No ttb Adverse Reaction; Pain is decreased 11:45 Drug: fentaNYL (PF) 25 mcg [fentanyl (PF) 50 mcg/mL injection solution (0.5 mL)] Route: ttb IVP; Site: left antecubital; 12:12 Follow up: Response: Confirmed pt not driving.; No Adverse Reaction ttb 11:49 Drug: NS 0.9% 50 ml, Piperacillin-Tazobactam 3.375 grams Route: IVPB; Infused Over: 30 ttb mins; Site: left antecubital; Delivery: Pump; 12:16 Follow up: Response: No Adverse Reaction; IV Status: Completed infusion; IV Intake: 50mlttb 12:10 Drug: LR 1000 ml [lactated ringers intravenous solution] Route: IV; Rate: 125 mL/hr; ttb Site: left antecubital; Delivery: Pump; Signatures: Dispatcher MedHo Catalina Owens RN RN jjr Conner, Teresa, RN RN ttb Lacey Putnam mm15 Roni Guthrie PA-C PAKdC cc10 Milly Cuevas [facility] The chart was reviewed and I authenticate all verbal orders and agree with the evaluation and treatment provided.Attachments: 08:41 [facility] Payment Agreement mm15 11:57 Admission Orders mm15 12:57 T-Sheet-- Draft Copy [facility] Chart Complete MTDD
--- NOTE | 2016-10-05 13:19 | EDDOCDS ---
Physician Documentation [facility] Name: Rupa Castellanos Age: 21 yrs Sex: Female : 1995 Arrival Date: 10/03/2016 Time: 07:20 Bed I3 / M3 Private MD: Disposition: 10/03/16 11:10 Hospitalization ordered by Kole Carlos for Inpatient Admission. Preliminary diagnosis is Acute appendicitis. - Bed requested for Admit. - Status is Inpatient Admission. ttb - Condition is Stable. - Problem is new. - Symptoms have improved. Historical: - Allergies: no known allergies; - Home Meds: 1. control pill daily 2. ibuprofen 1000 mg Oral tab prn (Last dose: 10/03/2016 06:30) - PMHx: none; - PSHx: none; - Social history: Smoking status: Patient states was never smoker of tobacco. No barriers to communication noted, The patient speaks fluent Estonian. - Family history: Not pertinent. - : The pt / caregiver states he / she is not on anticoagulants. Home medication list is obtained from the patient. - Exposure Risk Screening:: None identified. 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 5 in. (165.10 cm) (R); Pain 6/10; 10:38 BP 105 / 61 RA Sitting (auto/reg); Pulse 73; Resp 20; Temp 97.9(O); Pulse Ox 98% on bnb R/A; Pain 5/10; 10:53 Resp 16; Pain 5/10; ttb 12:06 BP 98 / 62; Pulse 84; Resp 20; Temp 98.0(O); Pulse Ox 100% on R/A; Pain 4/10; jml1 07:30 Body Mass Index 29.12 (79.38 kg, 165.10 cm) jjr MDM: 07:42 NS 0.9% 1000 ml IV at bolus once ordered. cc10 07:42 Ondansetron 4 mg IVP once ordered. cc10 07:42 ketorolac 30 mg IVP once ordered. cc10 07:42 IV Saline Lock ordered. cc10 07:42 Undress patient appropriately for examination ordered. cc10 07:42 UCG by Nursing ordered. cc10 07:43 Basic Metabolic Profile Ordered. EDMS 07:43 CBC with Diff Ordered. EDMS 07:43 Lipase Ordered. EDMS 07:43 Liver Profile Ordered. EDMS 07:43 Urinalysis Ordered. EDMS 07:44 NOTHING BY MOUTH+DIET ordered. EDMS 08:15 Financial registration complete. mm15 08:28 CBC with Diff Reviewed. cc10 08:28 Urinalysis Reviewed. cc10 08:32 CT ABD & PELVIS: IV Contrast Only Ordered. EDMS 08:41 [facility] [place] Payment Agreement was scanned into [employer] and attached to record. mm15 08:41 Liver Profile Reviewed. cc10 08:41 Basic Metabolic Profile Reviewed. cc10 08:41 Lipase Reviewed. cc10 09:46 morphine 4 mg IVP once ordered. cc10 11:05 BED REQUEST+ADM ordered. EDMS 11:23 Piperacillin-Tazobactam 3.375 grams IVPB once over 30 mins; dilute in 50mL of NS or D5W cc10 ordered. 11:30 fentaNYL (PF) 25 mcg IVP once ordered. cc10 11:31 Misc. Nursing Order ordered. cc10 11:57 Admission Orders was scanned into [employer] and attached to record. mm15 12:10 LR Solution 1000 ml IV at 125 mL/hr once via Pump; Dr. Carlos instructions ordered. ttb 12:10 ceFAZolin 2 grams IVPB once over 30 mins; dilute in 50mL of NS or D5W ONCALL TO OR ttb ordered. 12:57 T-Sheet-- Draft Copy was scanned into [employer] and attached to record. [facility] Point of Care Testing: Urine : 07:46 hCG Reading: Negative; Control Reading: Positive; bnb Ranges: Administered Medications: 08:06 Drug: NS 0.9% 1000 ml [sodium chloride 0.9 % intravenous solution] Route: IV; Rate: jjr bolus; Site: left antecubital; 09:52 Follow up: Response: No Adverse Reaction; IV Status: Completed infusion; IV Intake: ttb 1000ml 08:06 Drug: Ondansetron 4 mg [ondansetron HCl 2 mg/mL intravenous solution (2 mL)] Route: jjr IVP; Site: left antecubital; 09:52 Follow up: Response: Nausea is resolved; No Adverse Reaction ttb 08:06 Drug: ketorolac 30 mg [ketorolac 30 mg/mL (1 mL) injection solution (1 mL)] Route: IVP; jjr Site: left antecubital; 09:52 Follow up: Response: No Adverse Reaction ttb 09:51 Drug: morphine 4 mg [morphine 4 mg/mL intravenous cartridge (1 mL)] Route: IVP; Site: ttb left antecubital; 10:53 Follow up: Resp 16 bpm; Pain 5/10 Adult; Response: Confirmed pt not driving.; No ttb Adverse Reaction; Pain is decreased 11:45 Drug: fentaNYL (PF) 25 mcg [fentanyl (PF) 50 mcg/mL injection solution (0.5 mL)] Route: ttb IVP; Site: left antecubital; 12:12 Follow up: Response: Confirmed pt not driving.; No Adverse Reaction ttb 11:49 Drug: NS 0.9% 50 ml, Piperacillin-Tazobactam 3.375 grams Route: IVPB; Infused Over: 30 ttb mins; Site: left antecubital; Delivery: Pump; 12:16 Follow up: Response: No Adverse Reaction; IV Status: Completed infusion; IV Intake: 50mlttb 12:10 Drug: LR 1000 ml [lactated ringers intravenous solution] Route: IV; Rate: 125 mL/hr; ttb Site: left antecubital; Delivery: Pump; Signatures: Dispatcher MedHo Catalina Owens RN RN jjr Conner, Teresa, RN RN ttb Lacey Putnam mm15 Roni Guthrie PA-C PAKdC cc10 Milly Cuevas [facility] The chart was reviewed and I authenticate all verbal orders and agree with the evaluation and treatment provided.Attachments: 08:41 [facility] Payment Agreement mm15 11:57 Admission Orders mm15 12:57 T-Sheet-- Draft Copy [facility] Chart Complete MTDD
--- NOTE | 2016-10-05 13:19 | EDDOCDS ---
Nurse's Notes [facility] Name: Rupa Castellanos Age: 21 yrs Sex: Female : 1995 Arrival Date: 10/03/2016 Time: 07:20 Bed I3 / M3 Private MD: Diagnosis: Acute appendicitis Presentation: 10/03 07:24 Presenting complaint: Patient states: yesterday while moving developed substernal chest jjr pain radiating to anterior chest sharp intermittent since then, RLQ pain began yesterday evening sharp in nature reports nausea began 0100 with one episode of vomiting reports diarrhea yesterday and this morning. Risk factors: the patient reports no vaginal bleeding. Adult Sepsis Screening: The patient does not have new or worsening altered mentation. Patient's respiratory rate is less than 22. Systolic blood pressure is greater than 100. Patient has a qSOFA score of 0- Negative Sepsis Screen. Suicide/Homicide risk assessment- the patient denies having any suicidal and/or homicidal ideations and does not present with any other emotional, behavioral or mental health complaints. Status: Patient is not a service inspector or dependent. Transition of care: patient was not received from another setting of care. 07:24 Acuity: NADIRA Level 3 jjr 07:24 Method Of Arrival: Walkin/Carried/Asstd jjr Triage Assessment: 07:31 General: Appears in no apparent distress. Pain: Location: right lower quadrant. Pt jjr Declines HIV testing. GI: Reports diarrhea, lower abdominal pain, nausea, vomiting. 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 control pill daily 2. ibuprofen 1000 mg Oral tab prn (Last dose: 10/03/2016 06:30) - PMHx: none; - PSHx: none; - Social history: Smoking status: Patient states was never smoker of tobacco. No barriers to communication noted, The patient speaks fluent Icelandic. - Family history: Not pertinent. - : The pt / caregiver states he / she is not on anticoagulants. Home medication list is obtained from the patient. - Exposure Risk Screening:: None identified. Screenin:06 Screening information is obtained from the patient. Fall risk: No risks identified. jjr Assistance ADL's: requires no assistance with activities of daily living. Abuse/DV Screen: The patient / caregiver reports he/she is: not in a situation that causes fear, pain or injury. Nutritional screening: No deficits noted. Advance Directives: There is no active DNR order. home support is adequate. Assessment: 07:57 General: Appears in no apparent distress, well nourished, well groomed, Behavior is jjr appropriate for age. Pain: Aggravated by increased activity. Neurological: No deficits noted. Respiratory: No deficits noted. GI: Abdomen is non- distended Bowel sounds present X 4 quads. Abd is soft X 4 quads Abd is tender to palpation in umbilical area and right lower quadrant. GI: Reports lower abdominal pain, nausea. Derm: No deficits noted. 08:57 General: Appears in no apparent distress, denies any chest pain since arrival, RLQ pain jjr more pressure in nature at this time. 09:36 General: report taken from ROBERT Arnold to continue care. Pt resting on stretcher, on ttb phone. NAD noted. . General: Appears in no apparent distress, comfortable, well nourished, well groomed, Behavior is appropriate for age, pleasant. Neurological: No deficits noted. Level of Consciousness is awake, alert. Respiratory: No deficits noted. Airway is patent. 09:52 General: Appears in no apparent distress, comfortable, pt given morphine per request. ttb States mother is going to come get her. . Neurological: No deficits noted. Cardiovascular: Chest pain is denied. Respiratory: Airway is patent Respiratory effort is even, unlabored, Breath sounds are clear bilaterally. Denies cough, shortness of breath. GI: Denies nausea. Injury Description: No known injury. 10:45 General: Appears in no apparent distress, comfortable. Pain: Location: RLQ abd improved ttb after morphine. Neurological: Level of Consciousness is awake, alert. Respiratory: No deficits noted. 10:45 Adult Sepsis Screening: The patient does not have new or worsening altered mentation. ttb Patient's respiratory rate is less than 22. Systolic blood pressure is greater than 100. Patient has a qSOFA score of 0- Negative Sepsis Screen. 11:45 Reassessment: Patient appears in no apparent distress at this time. pt signed consents ttb signed and pt is awaiting transfer to OR. Pt given meds as ordered. Aware NPO still. . 11:45 General: Appears in no apparent distress, comfortable. Neurological: Level of ttb Consciousness is awake, alert. Respiratory: No deficits noted. 12:14 Reassessment: Patient appears in no apparent distress at this time. Patient states ttb feeling better. pain improved after meds. Pt transferred to OR at this time.. General: Appears in no apparent distress, comfortable. Neurological: Level of Consciousness is awake, alert. Cardiovascular: Chest pain is denied. Respiratory: No deficits noted. Airway is patent Respiratory effort is even, unlabored. GI: Denies nausea, vomiting. Vital Signs: 07:30 BP 124 / 71; Pulse 102; Resp 18; Temp 97.6(O); Pulse Ox 96% on R/A; Weight 79.38 kg jjr (R); Height 5 ft. 5 in. (165.10 cm) (R); Pain 6/10; 10:38 BP 105 / 61 RA Sitting (auto/reg); Pulse 73; Resp 20; Temp 97.9(O); Pulse Ox 98% on bnb R/A; Pain 5/10; 10:53 Resp 16; Pain 5/10; ttb 12:06 BP 98 / 62; Pulse 84; Resp 20; Temp 98.0(O); Pulse Ox 100% on R/A; Pain 4/10; jml1 07:30 Body Mass Index 29.12 (79.38 kg, 165.10 cm) [facility] Vitals: 07:27 Log In Time: October 03, 2016 at 07:20. [facility] ED Course: 07:22 Patient visited by Arlet Mckinley Reg. hs2 07:22 Patient moved to Waiting hs2 07:27 Triage Initiated jjr 07:34 Catalina Sparks, ROBERT is Primary Nurse. jjr 07:34 Patient moved to I3 / M3 jjr 07:37 Roni Guthrie PA-C is PHCP. cc10 07:37 Odalis Contreras MD is Attending Physician. cc10 07:37 Patient visited by Roni Guthrie PA-C. cc10 07:37 Patient visited by Roni Guthrie PA-C. cc10 07:52 Patient visited by Jayla Chaney PCA. bnb 07:52 Urinalysis Sent. bnb 07:57 Basic Metabolic Profile Sent. jjr 07:57 CBC with Diff Sent. jjr 07:57 Lipase Sent. jjr 07:57 Liver Profile Sent. jjr 07:58 Patient visited by Catalina Sparks, RN. jjr 07:58 The patient / caregiver is instructed regarding the plan of care and ED course. jjr 07:58 Inserted saline lock: 20 gauge in left antecubital area and blood collected. Labs jjr drawn. (by ED staff). Sent per order to lab. Urine collected. Clean catch specimen. Urine specimen sent to lab. 08:41 [facility] Payment Agreement was scanned into [employer] and attached to record. mm15 08:50 Patient visited by Tutu Ceballos. jml1 08:58 Patient visited by Catalina Sparks, ROBERT. jjr 09:23 Patient name changed from Rupa\S\\S\Castellanos\S\ to Rupa\S\ \S\Castellanos. EDMS 09:36 Patient visited by Albina Neves RN. ttb 09:36 Patient has correct armband on for positive identification. ttb 09:36 No procedures done that require assistance. ttb 09:37 Patient visited by Albina Neves RN. ttb 09:53 Patient visited by Albina Neves RN. ttb 10:39 Patient visited by Jayla Chaney PCA. bnb 11:10 Kole Carlos DO is Hospitalizing Provider. cc10 11:52 Patient visited by Albina Neves RN. ttb 11:57 Admission Orders was scanned into [employer] and attached to record. mm15 12:07 Patient visited by Tutu Ceballos. jml1 12:57 T-Sheet-- Draft Copy was scanned into [employer] and attached to record. [facility] Administered Medications: 08:06 Drug: NS 0.9% 1000 ml [sodium chloride 0.9 % intravenous solution] Route: IV; Rate: jjr bolus; Site: left antecubital; 09:52 Follow up: Response: No Adverse Reaction; IV Status: Completed infusion; IV Intake: ttb 1000ml 08:06 Drug: Ondansetron 4 mg [ondansetron HCl 2 mg/mL intravenous solution (2 mL)] Route: jjr IVP; Site: left antecubital; 09:52 Follow up: Response: Nausea is resolved; No Adverse Reaction ttb 08:06 Drug: ketorolac 30 mg [ketorolac 30 mg/mL (1 mL) injection solution (1 mL)] Route: IVP; jjr Site: left antecubital; 09:52 Follow up: Response: No Adverse Reaction ttb 09:51 Drug: morphine 4 mg [morphine 4 mg/mL intravenous cartridge (1 mL)] Route: IVP; Site: ttb left antecubital; 10:53 Follow up: Resp 16 bpm; Pain 5/10 Adult; Response: Confirmed pt not driving.; No ttb Adverse Reaction; Pain is decreased 11:45 Drug: fentaNYL (PF) 25 mcg [fentanyl (PF) 50 mcg/mL injection solution (0.5 mL)] Route: ttb IVP; Site: left antecubital; 12:12 Follow up: Response: Confirmed pt not driving.; No Adverse Reaction ttb 11:49 Drug: NS 0.9% 50 ml, Piperacillin-Tazobactam 3.375 grams Route: IVPB; Infused Over: 30 ttb mins; Site: left antecubital; Delivery: Pump; 12:16 Follow up: Response: No Adverse Reaction; IV Status: Completed infusion; IV Intake: 50mlttb 12:10 Drug: LR 1000 ml [lactated ringers intravenous solution] Route: IV; Rate: 125 mL/hr; ttb Site: left antecubital; Delivery: Pump; Point of Care Testing: Urine : 07:46 hCG Reading: Negative; Control Reading: Positive; bnb Ranges: Intake: 09:52 IV: 1000.00ml; Total: 1000.00ml. ttb 12:16 IV: 50.00ml; Total: 1050.00ml. ttb Order Results: Lab Order: Basic Metabolic Profile; SPEC'M 10/03/16 07:55 Test: GLUCOSE, FASTING; Value: 85; Range: 70-105; Units: MG/DL; Status: F Test: BLOOD UREA NITROGEN; Value: 13; Range: 7-18; Units: MG/DL; Status: F Test: CREATININE FOR GFR; Value: 0.94; Range: 0.55-1.02; Units: MG/DL; Status: F Test: SODIUM LEVEL; Value: 142; Range: 136-145; Units: MEQ/L; Status: F Test: POTASSIUM SERUM; Value: 3.7; Range: 3.5-5.1; Units: MEQ/L; Status: F Test: CHLORIDE LEVEL; Value: 107; Range: 98-107; Units: MEQ/L; Status: F Test: CARBON DIOXIDE LEVEL; Value: 27; Range: 21-32; Units: MEQ/L; Status: F Test: ANION GAP; Value: 8; Range: 8-16; Units: MEQ/L; Status: F Test: CALCIUM LEVEL; Value: 9.1; Range: 8.5-10.1; Units: MG/DL; Status: F Lab Order: CBC with Diff; SPEC'M 10/03/16 07:55 Test: WHITE BLOOD COUNT; Value: 14.3; Range: 4.0-10.0; Abnormal: Above high normal; Units: K/mm3; Status: F Test: RED BLOOD COUNT; Value: 4.56; Range: 4.00-5.40; Units: M/mm3; Status: F Test: HEMOGLOBIN; Value: 13.8; Range: 12.0-16.0; Units: g/dl; Status: F Test: HEMATOCRIT; Value: 41.1; Range: 36.0-47.0; Units: %; Status: F Test: MEAN CORPUSCULAR VOLUME; Value: 90.2; Range: 80.0-96.0; Units: fl; Status: F Test: MEAN CORPUSCULAR HEMOGLOBIN; Value: 30.4; Range: 27.0-33.0; Units: pg; Status: F Test: MEAN CORPUSCULAR HGB CONC; Value: 33.7; Range: 32.0-36.5; Units: g/dl; Status: F Test: RED CELL DISTRIBUTION WIDTH; Value: 12.8; Range: 11.5-14.5; Units: %; Status: F Test: PLATELET COUNT, AUTOMATED; Value: 232; Range: 150-450; Units: k/mm3; Status: F Test: NEUTROPHILS %; Value: 84.7; Range: 36.0-66.0; Abnormal: Above high normal; Units: %; Status: F Test: LYMPH %; Value: 7.9; Range: 24.0-44.0; Abnormal: Below low normal; Units: %; Status: F Test: MONO %; Value: 5.2; Range: 0.0-5.0; Abnormal: Above high normal; Units: %; Status: F Test: EOS %; Value: 1.1; Range: 0.0-3.0; Units: %; Status: F Test: BASO %; Value: 0.7; Range: 0.0-1.0; Units: %; Status: F Test: LARGE UNSTAINED CELL %; Value: 0.5; Range: 0.0-4.0; Units: %; Status: F Test: NEUTROPHILS #; Value: 12.1; Range: 1.8-7.7; Abnormal: Above high normal; Units: K/mm3; Status: F Test: LYMPH #; Value: 1.2; Range: 1.5-6.5; Abnormal: Below low normal; Units: K/mm3; Status: F Test: MONO #; Value: 0.7; Range: 0.0-0.8; Units: K/mm3; Status: F Test: EOS #; Value: 0.2; Range: 0.0-0.50; Units: K/mm3; Status: F Test: BASO #; Value: 0.1; Range: 0.0-0.2; Units: K/mm3; Status: F Test: LARGE UNSTAINED CELL #; Value: 0.1; Range: 0.0-0.4; Units: K/mm3; Status: F Lab Order: Lipase; SPEC'M 10/03/16 07:55 Test: LIPASE; Value: 104; Range: 73-393; Units: U/L; Status: F Lab Order: Liver Profile; SPEC'M 10/03/16 07:55 Test: AST/SGOT; Value: 12; Range: 15-37; Abnormal: Below low normal; Units: U/L; Status: F Test: ALT/SGPT; Value: 19; Range: 12-78; Units: U/L; Status: F Test: ALKALINE PHOSPHATASE; Value: 80; Range: 45-117; Units: U/L; Status: F Test: BILIRUBIN,TOTAL; Value: 0.6; Range: 0.2-1.0; Units: MG/DL; Status: F Test: BILIRUBIN,DIRECT; Value: 0.1; Range: 0.0-0.2; Units: MG/DL; Status: F Test: TOTAL PROTEIN; Value: 7.5; Range: 6.4-8.2; Units: GM/DL; Status: F Test: ALBUMIN; Value: 3.8; Range: 3.2-5.2; Units: GM/DL; Status: F Test: ALBUMIN/GLOBULIN RATIO; Value: 1.03; Range: 1.00-1.93; Status: F Lab Order: Urinalysis; SPEC'M 10/03/16 07:45 Test: APPEARANCE, URINE; Value: CLEAR; Range: CLEAR; Status: F Test: COLOR, URINE; Value: YELLOW; Range: YELLOW; Status: F Test: PH,URINE; Value: 5.0; Range: 5.0-9.0; Units: UNITS; Status: F Test: SPECIFIC GRAVITY URINE AUTO; Value: 1.019; Range: 1.002-1.035; Status: F Test: PROTEIN, URINE AUTO; Value: 1+; Range: NEGATIVE; Abnormal: Above high normal; Units: mg/dL; Status: F Test: GLUCOSE, URINE (UA) AUTO; Value: NEGATIVE; Range: NEGATIVE; Units: mg/dL; Status: F Test: KETONE, URINE AUTO; Value: NEGATIVE; Range: NEGATIVE; Units: mg/dL; Status: F Test: UROBILINOGEN, URINE AUTO; Value: 0.2; Range: 0.0-2.0; Units: mg/dL; Status: F Test: BILIRUBIN, URINE AUTO; Value: NEGATIVE; Range: NEGATIVE; Status: F Test: NITRITE, URINE AUTO; Value: NEGATIVE; Range: NEGATIVE; Status: F Test: LEUKOCYTE ESTERASE, URINE AUTO; Value: NEGATIVE; Range: NEGATIVE; Status: F Test: BLOOD, URINE BLOOD; Value: NEGATIVE; Range: NEGATIVE; Status: F Test: WBC, URINE AUTO; Value: 1; Range: 0-3; Units: /HPF; Status: F Test: RBC, URINE AUTO; Value: 1; Range: 0-3; Units: /HPF; Status: F Test: BACTERIA, URINE AUTO; Value: NEGATIVE; Range: NEGATIVE; Status: F Test: SQUAMOUS EPITHELIAL CELL UR AU; Value: 2; Range: 0-6; Units: /HPF; Status: F Test: MUCUS, URINE; Value: SMALL; Range: NEGATIVE; Status: F Test: HYALINE CAST, URINE AUTO; Value: 0; Range: 0-1; Units: /LPF; Status: F Outcome: 09:36 CT Study completed. ttb 11:10 Decision to Hospitalize by Provider. cc10 12:14 Discharge Assessment: Patient awake, alert and oriented x 3. No cognitive and/or ttb functional deficits noted. Patient verbalized understanding of disposition instructions. Patient awake and alert. patient administered narcotics - yes. Patient was admitted to the hospital or transferred to another facility. The following High Risk Discharge criteria are identified: Yes, admit to OR at this time. SDS. Admitted to OR accompanied by nurse, accompanied by tech, family with patient, via stretcher, with chart. Condition: good Condition: stable Condition: improved. Instructed on OR process/SDS process. Admission hand-off: Other: verbal to OR staff . Property given to family member, Alex ANDRES. 12:18 Patient left the ED. ttb Signatures: Dispatcher [employer] EDCatalina Gonzáles, RN RN Tutu Suarez jml1 Albina Neves RN RN ttb Lacey Putnam mm15 Roni Guthrie PAKdC PA-C cc10 Arlet Mckinley, Reg Reg hs2 Milly Cuevas Brittney, [employer] REPAIRER bnb Chart Complete MTDD
--- NOTE | 2016-10-08 08:03 | EDDOCDS ---
Physician Documentation [facility] Name: Rupa Castellanos Age: 21 yrs Sex: Female : 1995 Arrival Date: 10/03/2016 Time: 07:20 Bed I3 / M3 Private MD: Disposition: 10/03/16 11:10 Hospitalization ordered by Kole Carlos for Inpatient Admission. Preliminary diagnosis is Acute appendicitis. - Bed requested for Admit. - Status is Inpatient Admission. ttb - Condition is Stable. - Problem is new. - Symptoms have improved. Historical: - Allergies: no known allergies; - Home Meds: 1. control pill daily 2. ibuprofen 1000 mg Oral tab prn (Last dose: 10/03/2016 06:30) - PMHx: none; - PSHx: none; - Social history: Smoking status: Patient states was never smoker of tobacco. No barriers to communication noted, The patient speaks fluent Togolese. - Family history: Not pertinent. - : The pt / caregiver states he / she is not on anticoagulants. Home medication list is obtained from the patient. - Exposure Risk Screening:: None identified. 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 5 in. (165.10 cm) (R); Pain 6/10; 10:38 BP 105 / 61 RA Sitting (auto/reg); Pulse 73; Resp 20; Temp 97.9(O); Pulse Ox 98% on bnb R/A; Pain 5/10; 10:53 Resp 16; Pain 5/10; ttb 12:06 BP 98 / 62; Pulse 84; Resp 20; Temp 98.0(O); Pulse Ox 100% on R/A; Pain 4/10; jml1 07:30 Body Mass Index 29.12 (79.38 kg, 165.10 cm) jjr MDM: 07:42 NS 0.9% 1000 ml IV at bolus once ordered. cc10 07:42 Ondansetron 4 mg IVP once ordered. cc10 07:42 ketorolac 30 mg IVP once ordered. cc10 07:42 IV Saline Lock ordered. cc10 07:42 Undress patient appropriately for examination ordered. cc10 07:42 UCG by Nursing ordered. cc10 07:43 Basic Metabolic Profile Ordered. EDMS 07:43 CBC with Diff Ordered. EDMS 07:43 Lipase Ordered. EDMS 07:43 Liver Profile Ordered. EDMS 07:43 Urinalysis Ordered. EDMS 07:44 NOTHING BY MOUTH+DIET ordered. EDMS 08:15 Financial registration complete. mm15 08:28 CBC with Diff Reviewed. cc10 08:28 Urinalysis Reviewed. cc10 08:32 CT ABD & PELVIS: IV Contrast Only Ordered. EDMS 08:41 [facility] Payment Agreement was scanned into [employer] and attached to record. mm15 08:41 Liver Profile Reviewed. cc10 08:41 Basic Metabolic Profile Reviewed. cc10 08:41 Lipase Reviewed. cc10 09:46 morphine 4 mg IVP once ordered. cc10 11:05 BED REQUEST+ADM ordered. EDMS 11:23 Piperacillin-Tazobactam 3.375 grams IVPB once over 30 mins; dilute in 50mL of NS or D5W cc10 ordered. 11:30 fentaNYL (PF) 25 mcg IVP once ordered. cc10 11:31 Misc. Nursing Order ordered. cc10 11:57 Admission Orders was scanned into [employer] and attached to record. mm15 12:10 LR Solution 1000 ml IV at 125 mL/hr once via Pump; Dr. Carlos instructions ordered. ttb 12:10 ceFAZolin 2 grams IVPB once over 30 mins; dilute in 50mL of NS or D5W ONCALL TO OR ttb ordered. 12:57 T-Sheet-- Draft Copy was scanned into [employer] and attached to record. [facility] Point of Care Testing: Urine : 07:46 hCG Reading: Negative; Control Reading: Positive; bnb Ranges: Administered Medications: 08:06 Drug: NS 0.9% 1000 ml [sodium chloride 0.9 % intravenous solution] Route: IV; Rate: jjr bolus; Site: left antecubital; 09:52 Follow up: Response: No Adverse Reaction; IV Status: Completed infusion; IV Intake: ttb 1000ml 08:06 Drug: Ondansetron 4 mg [ondansetron HCl 2 mg/mL intravenous solution (2 mL)] Route: jjr IVP; Site: left antecubital; 09:52 Follow up: Response: Nausea is resolved; No Adverse Reaction ttb 08:06 Drug: ketorolac 30 mg [ketorolac 30 mg/mL (1 mL) injection solution (1 mL)] Route: IVP; jjr Site: left antecubital; 09:52 Follow up: Response: No Adverse Reaction ttb 09:51 Drug: morphine 4 mg [morphine 4 mg/mL intravenous cartridge (1 mL)] Route: IVP; Site: ttb left antecubital; 10:53 Follow up: Resp 16 bpm; Pain 5/10 Adult; Response: Confirmed pt not driving.; No ttb Adverse Reaction; Pain is decreased 11:45 Drug: fentaNYL (PF) 25 mcg [fentanyl (PF) 50 mcg/mL injection solution (0.5 mL)] Route: ttb IVP; Site: left antecubital; 12:12 Follow up: Response: Confirmed pt not driving.; No Adverse Reaction ttb 11:49 Drug: NS 0.9% 50 ml, Piperacillin-Tazobactam 3.375 grams Route: IVPB; Infused Over: 30 ttb mins; Site: left antecubital; Delivery: Pump; 12:16 Follow up: Response: No Adverse Reaction; IV Status: Completed infusion; IV Intake: 50mlttb 12:10 Drug: LR 1000 ml [lactated ringers intravenous solution] Route: IV; Rate: 125 mL/hr; ttb Site: left antecubital; Delivery: Pump; Signatures: Dispatcher [employer] Catalina Owens RN RN jjr Conner, Teresa, RN RN ttb Lacey Putnam mm15 Roni Guthrie PA-C PAKdC cc10 Milly Cuevas [facility] The chart was reviewed and I authenticate all verbal orders and agree with the evaluation and treatment provided.Attachments: 08:41 [facility] Payment Agreement mm15 11:57 Admission Orders mm15 12:57 T-Sheet-- Draft Copy [facility] Chart Complete MTDD
--- NOTE | 2016-10-08 08:03 | EDDOCDS ---
Physician Documentation [facility] Name: Rupa Castellanos Age: 21 yrs Sex: Female : 1995 Arrival Date: 10/03/2016 Time: 07:20 Bed I3 / M3 Private MD: Disposition: 10/03/16 11:10 Hospitalization ordered by Kole Carlos for Inpatient Admission. Preliminary diagnosis is Acute appendicitis. - Bed requested for Admit. - Status is Inpatient Admission. ttb - Condition is Stable. - Problem is new. - Symptoms have improved. Historical: - Allergies: no known allergies; - Home Meds: 1. control pill daily 2. ibuprofen 1000 mg Oral tab prn (Last dose: 10/03/2016 06:30) - PMHx: none; - PSHx: none; - Social history: Smoking status: Patient states was never smoker of tobacco. No barriers to communication noted, The patient speaks fluent Burkinan. - Family history: Not pertinent. - : The pt / caregiver states he / she is not on anticoagulants. Home medication list is obtained from the patient. - Exposure Risk Screening:: None identified. 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 5 in. (165.10 cm) (R); Pain 6/10; 10:38 BP 105 / 61 RA Sitting (auto/reg); Pulse 73; Resp 20; Temp 97.9(O); Pulse Ox 98% on bnb R/A; Pain 5/10; 10:53 Resp 16; Pain 5/10; ttb 12:06 BP 98 / 62; Pulse 84; Resp 20; Temp 98.0(O); Pulse Ox 100% on R/A; Pain 4/10; jml1 07:30 Body Mass Index 29.12 (79.38 kg, 165.10 cm) jjr MDM: 07:42 NS 0.9% 1000 ml IV at bolus once ordered. cc10 07:42 Ondansetron 4 mg IVP once ordered. cc10 07:42 ketorolac 30 mg IVP once ordered. cc10 07:42 IV Saline Lock ordered. cc10 07:42 Undress patient appropriately for examination ordered. cc10 07:42 UCG by Nursing ordered. cc10 07:43 Basic Metabolic Profile Ordered. EDMS 07:43 CBC with Diff Ordered. EDMS 07:43 Lipase Ordered. EDMS 07:43 Liver Profile Ordered. EDMS 07:43 Urinalysis Ordered. EDMS 07:44 NOTHING BY MOUTH+DIET ordered. EDMS 08:15 Financial registration complete. mm15 08:28 CBC with Diff Reviewed. cc10 08:28 Urinalysis Reviewed. cc10 08:32 CT ABD & PELVIS: IV Contrast Only Ordered. EDMS 08:41 [facility] [place] Payment Agreement was scanned into [employer] and attached to record. mm15 08:41 Liver Profile Reviewed. cc10 08:41 Basic Metabolic Profile Reviewed. cc10 08:41 Lipase Reviewed. cc10 09:46 morphine 4 mg IVP once ordered. cc10 11:05 BED REQUEST+ADM ordered. EDMS 11:23 Piperacillin-Tazobactam 3.375 grams IVPB once over 30 mins; dilute in 50mL of NS or D5W cc10 ordered. 11:30 fentaNYL (PF) 25 mcg IVP once ordered. cc10 11:31 Misc. Nursing Order ordered. cc10 11:57 Admission Orders was scanned into [employer] and attached to record. mm15 12:10 LR Solution 1000 ml IV at 125 mL/hr once via Pump; Dr. Carlos instructions ordered. ttb 12:10 ceFAZolin 2 grams IVPB once over 30 mins; dilute in 50mL of NS or D5W ONCALL TO OR ttb ordered. 12:57 T-Sheet-- Draft Copy was scanned into [employer]os and attached to record. [facility] Point of Care Testing: Urine : 07:46 hCG Reading: Negative; Control Reading: Positive; bnb Ranges: Administered Medications: 08:06 Drug: NS 0.9% 1000 ml [sodium chloride 0.9 % intravenous solution] Route: IV; Rate: jjr bolus; Site: left antecubital; 09:52 Follow up: Response: No Adverse Reaction; IV Status: Completed infusion; IV Intake: ttb 1000ml 08:06 Drug: Ondansetron 4 mg [ondansetron HCl 2 mg/mL intravenous solution (2 mL)] Route: jjr IVP; Site: left antecubital; 09:52 Follow up: Response: Nausea is resolved; No Adverse Reaction ttb 08:06 Drug: ketorolac 30 mg [ketorolac 30 mg/mL (1 mL) injection solution (1 mL)] Route: IVP; jjr Site: left antecubital; 09:52 Follow up: Response: No Adverse Reaction ttb 09:51 Drug: morphine 4 mg [morphine 4 mg/mL intravenous cartridge (1 mL)] Route: IVP; Site: ttb left antecubital; 10:53 Follow up: Resp 16 bpm; Pain 5/10 Adult; Response: Confirmed pt not driving.; No ttb Adverse Reaction; Pain is decreased 11:45 Drug: fentaNYL (PF) 25 mcg [fentanyl (PF) 50 mcg/mL injection solution (0.5 mL)] Route: ttb IVP; Site: left antecubital; 12:12 Follow up: Response: Confirmed pt not driving.; No Adverse Reaction ttb 11:49 Drug: NS 0.9% 50 ml, Piperacillin-Tazobactam 3.375 grams Route: IVPB; Infused Over: 30 ttb mins; Site: left antecubital; Delivery: Pump; 12:16 Follow up: Response: No Adverse Reaction; IV Status: Completed infusion; IV Intake: 50mlttb 12:10 Drug: LR 1000 ml [lactated ringers intravenous solution] Route: IV; Rate: 125 mL/hr; ttb Site: left antecubital; Delivery: Pump; Signatures: Dispatcher [employer] Catalina Owens RN RN jjr Conner, Teresa, RN RN ttb Lacey Putnam mm15 Roni Guthrie PA-C PAKdC cc10 Milly Cuevas [facility] The chart was reviewed and I authenticate all verbal orders and agree with the evaluation and treatment provided.Attachments: 08:41 [facility] Payment Agreement mm15 11:57 Admission Orders mm15 12:57 T-Sheet-- Draft Copy [facility] Chart Complete MTDD
--- NOTE | 2016-10-08 08:03 | EDDOCDS ---
Nurse's Notes [facility] Name: Rupa Catsellanos Age: 21 yrs Sex: Female : 1995 Arrival Date: 10/03/2016 Time: 07:20 Bed I3 / M3 Private MD: Diagnosis: Acute appendicitis Presentation: 10/03 07:24 Presenting complaint: Patient states: yesterday while moving developed substernal chest jjr pain radiating to anterior chest sharp intermittent since then, RLQ pain began yesterday evening sharp in nature reports nausea began 0100 with one episode of vomiting reports diarrhea yesterday and this morning. Risk factors: the patient reports no vaginal bleeding. Adult Sepsis Screening: The patient does not have new or worsening altered mentation. Patient's respiratory rate is less than 22. Systolic blood pressure is greater than 100. Patient has a qSOFA score of 0- Negative Sepsis Screen. Suicide/Homicide risk assessment- the patient denies having any suicidal and/or homicidal ideations and does not present with any other emotional, behavioral or mental health complaints. Status: Patient is not a caseworker protective services or dependent. Transition of care: patient was not received from another setting of care. 07:24 Acuity: NADIRA Level 3 jjr 07:24 Method Of Arrival: Walkin/Carried/Asstd jjr Triage Assessment: 07:31 General: Appears in no apparent distress. Pain: Location: right lower quadrant. Pt jjr Declines HIV testing. GI: Reports diarrhea, lower abdominal pain, nausea, vomiting. 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 control pill daily 2. ibuprofen 1000 mg Oral tab prn (Last dose: 10/03/2016 06:30) - PMHx: none; - PSHx: none; - Social history: Smoking status: Patient states was never smoker of tobacco. No barriers to communication noted, The patient speaks fluent Kazakh. - Family history: Not pertinent. - : The pt / caregiver states he / she is not on anticoagulants. Home medication list is obtained from the patient. - Exposure Risk Screening:: None identified. Screenin:06 Screening information is obtained from the patient. Fall risk: No risks identified. jjr Assistance ADL's: requires no assistance with activities of daily living. Abuse/DV Screen: The patient / caregiver reports he/she is: not in a situation that causes fear, pain or injury. Nutritional screening: No deficits noted. Advance Directives: There is no active DNR order. home support is adequate. Assessment: 07:57 General: Appears in no apparent distress, well nourished, well groomed, Behavior is jjr appropriate for age. Pain: Aggravated by increased activity. Neurological: No deficits noted. Respiratory: No deficits noted. GI: Abdomen is non- distended Bowel sounds present X 4 quads. Abd is soft X 4 quads Abd is tender to palpation in umbilical area and right lower quadrant. GI: Reports lower abdominal pain, nausea. Derm: No deficits noted. 08:57 General: Appears in no apparent distress, denies any chest pain since arrival, RLQ pain jjr more pressure in nature at this time. 09:36 General: report taken from ROBERT Arnold to continue care. Pt resting on stretcher, on ttb phone. NAD noted. . General: Appears in no apparent distress, comfortable, well nourished, well groomed, Behavior is appropriate for age, pleasant. Neurological: No deficits noted. Level of Consciousness is awake, alert. Respiratory: No deficits noted. Airway is patent. 09:52 General: Appears in no apparent distress, comfortable, pt given morphine per request. ttb States mother is going to come get her. . Neurological: No deficits noted. Cardiovascular: Chest pain is denied. Respiratory: Airway is patent Respiratory effort is even, unlabored, Breath sounds are clear bilaterally. Denies cough, shortness of breath. GI: Denies nausea. Injury Description: No known injury. 10:45 General: Appears in no apparent distress, comfortable. Pain: Location: RLQ abd improved ttb after morphine. Neurological: Level of Consciousness is awake, alert. Respiratory: No deficits noted. 10:45 Adult Sepsis Screening: The patient does not have new or worsening altered mentation. ttb Patient's respiratory rate is less than 22. Systolic blood pressure is greater than 100. Patient has a qSOFA score of 0- Negative Sepsis Screen. 11:45 Reassessment: Patient appears in no apparent distress at this time. pt signed consents ttb signed and pt is awaiting transfer to OR. Pt given meds as ordered. Aware NPO still. . 11:45 General: Appears in no apparent distress, comfortable. Neurological: Level of ttb Consciousness is awake, alert. Respiratory: No deficits noted. 12:14 Reassessment: Patient appears in no apparent distress at this time. Patient states ttb feeling better. pain improved after meds. Pt transferred to OR at this time.. General: Appears in no apparent distress, comfortable. Neurological: Level of Consciousness is awake, alert. Cardiovascular: Chest pain is denied. Respiratory: No deficits noted. Airway is patent Respiratory effort is even, unlabored. GI: Denies nausea, vomiting. Vital Signs: 07:30 BP 124 / 71; Pulse 102; Resp 18; Temp 97.6(O); Pulse Ox 96% on R/A; Weight 79.38 kg jjr (R); Height 5 ft. 5 in. (165.10 cm) (R); Pain 6/10; 10:38 BP 105 / 61 RA Sitting (auto/reg); Pulse 73; Resp 20; Temp 97.9(O); Pulse Ox 98% on bnb R/A; Pain 5/10; 10:53 Resp 16; Pain 5/10; ttb 12:06 BP 98 / 62; Pulse 84; Resp 20; Temp 98.0(O); Pulse Ox 100% on R/A; Pain 4/10; jml1 07:30 Body Mass Index 29.12 (79.38 kg, 165.10 cm) [facility] Vitals: 07:27 Log In Time: October 03, 2016 at 07:20. [facility] ED Course: 07:22 Patient visited by Arlet Mckinley Reg. hs2 07:22 Patient moved to Waiting hs2 07:27 Triage Initiated jjr 07:34 Catalina Sparks, ROBERT is Primary Nurse. jjr 07:34 Patient moved to I3 / M3 jjr 07:37 Roni Guthrie PA-C is PHCP. cc10 07:37 Odalis Contreras MD is Attending Physician. cc10 07:37 Patient visited by Roni Guthrie PA-C. cc10 07:37 Patient visited by Roni Guthrie PA-C. cc10 07:52 Patient visited by Jayla Chaney PCA. bnb 07:52 Urinalysis Sent. bnb 07:57 Basic Metabolic Profile Sent. jjr 07:57 CBC with Diff Sent. jjr 07:57 Lipase Sent. jjr 07:57 Liver Profile Sent. jjr 07:58 Patient visited by Catalina pSarks, RN. jjr 07:58 The patient / caregiver is instructed regarding the plan of care and ED course. jjr 07:58 Inserted saline lock: 20 gauge in left antecubital area and blood collected. Labs jjr drawn. (by ED staff). Sent per order to lab. Urine collected. Clean catch specimen. Urine specimen sent to lab. 08:41 [facility] [place] Agreement was scanned into [employer] and attached to record. mm15 08:50 Patient visited by Tutu Ceballos. jml1 08:58 Patient visited by Catalina Sparks, ROBERT. jjr 09:23 Patient name changed from Rupa\S\\S\Castellanos\S\ to Rupa\S\ \S\Castellanos. EDMS 09:36 Patient visited by Albina Neves RN. ttb 09:36 Patient has correct armband on for positive identification. ttb 09:36 No procedures done that require assistance. ttb 09:37 Patient visited by Albina Neves RN. ttb 09:53 Patient visited by Albina Neves RN. ttb 10:39 Patient visited by Jayla Chaney PCA. bnb 11:10 Kole Carlos DO is Hospitalizing Provider. cc10 11:52 Patient visited by Albina Neves RN. ttb 11:57 Admission Orders was scanned into [employer] and attached to record. mm15 12:07 Patient visited by Tutu Ceballos. jml1 12:57 T-Sheet-- Draft Copy was scanned into Rating[employer] and attached to record. [facility] Administered Medications: 08:06 Drug: NS 0.9% 1000 ml [sodium chloride 0.9 % intravenous solution] Route: IV; Rate: jjr bolus; Site: left antecubital; 09:52 Follow up: Response: No Adverse Reaction; IV Status: Completed infusion; IV Intake: ttb 1000ml 08:06 Drug: Ondansetron 4 mg [ondansetron HCl 2 mg/mL intravenous solution (2 mL)] Route: jjr IVP; Site: left antecubital; 09:52 Follow up: Response: Nausea is resolved; No Adverse Reaction ttb 08:06 Drug: ketorolac 30 mg [ketorolac 30 mg/mL (1 mL) injection solution (1 mL)] Route: IVP; jjr Site: left antecubital; 09:52 Follow up: Response: No Adverse Reaction ttb 09:51 Drug: morphine 4 mg [morphine 4 mg/mL intravenous cartridge (1 mL)] Route: IVP; Site: ttb left antecubital; 10:53 Follow up: Resp 16 bpm; Pain 5/10 Adult; Response: Confirmed pt not driving.; No ttb Adverse Reaction; Pain is decreased 11:45 Drug: fentaNYL (PF) 25 mcg [fentanyl (PF) 50 mcg/mL injection solution (0.5 mL)] Route: ttb IVP; Site: left antecubital; 12:12 Follow up: Response: Confirmed pt not driving.; No Adverse Reaction ttb 11:49 Drug: NS 0.9% 50 ml, Piperacillin-Tazobactam 3.375 grams Route: IVPB; Infused Over: 30 ttb mins; Site: left antecubital; Delivery: Pump; 12:16 Follow up: Response: No Adverse Reaction; IV Status: Completed infusion; IV Intake: 50mlttb 12:10 Drug: LR 1000 ml [lactated ringers intravenous solution] Route: IV; Rate: 125 mL/hr; ttb Site: left antecubital; Delivery: Pump; Point of Care Testing: Urine : 07:46 hCG Reading: Negative; Control Reading: Positive; bnb Ranges: Intake: 09:52 IV: 1000.00ml; Total: 1000.00ml. ttb 12:16 IV: 50.00ml; Total: 1050.00ml. ttb Order Results: Lab Order: Basic Metabolic Profile; SPEC'M 10/03/16 07:55 Test: GLUCOSE, FASTING; Value: 85; Range: 70-105; Units: MG/DL; Status: F Test: BLOOD UREA NITROGEN; Value: 13; Range: 7-18; Units: MG/DL; Status: F Test: CREATININE FOR GFR; Value: 0.94; Range: 0.55-1.02; Units: MG/DL; Status: F Test: SODIUM LEVEL; Value: 142; Range: 136-145; Units: MEQ/L; Status: F Test: POTASSIUM SERUM; Value: 3.7; Range: 3.5-5.1; Units: MEQ/L; Status: F Test: CHLORIDE LEVEL; Value: 107; Range: 98-107; Units: MEQ/L; Status: F Test: CARBON DIOXIDE LEVEL; Value: 27; Range: 21-32; Units: MEQ/L; Status: F Test: ANION GAP; Value: 8; Range: 8-16; Units: MEQ/L; Status: F Test: CALCIUM LEVEL; Value: 9.1; Range: 8.5-10.1; Units: MG/DL; Status: F Lab Order: CBC with Diff; SPEC'M 10/03/16 07:55 Test: WHITE BLOOD COUNT; Value: 14.3; Range: 4.0-10.0; Abnormal: Above high normal; Units: K/mm3; Status: F Test: RED BLOOD COUNT; Value: 4.56; Range: 4.00-5.40; Units: M/mm3; Status: F Test: HEMOGLOBIN; Value: 13.8; Range: 12.0-16.0; Units: g/dl; Status: F Test: HEMATOCRIT; Value: 41.1; Range: 36.0-47.0; Units: %; Status: F Test: MEAN CORPUSCULAR VOLUME; Value: 90.2; Range: 80.0-96.0; Units: fl; Status: F Test: MEAN CORPUSCULAR HEMOGLOBIN; Value: 30.4; Range: 27.0-33.0; Units: pg; Status: F Test: MEAN CORPUSCULAR HGB CONC; Value: 33.7; Range: 32.0-36.5; Units: g/dl; Status: F Test: RED CELL DISTRIBUTION WIDTH; Value: 12.8; Range: 11.5-14.5; Units: %; Status: F Test: PLATELET COUNT, AUTOMATED; Value: 232; Range: 150-450; Units: k/mm3; Status: F Test: NEUTROPHILS %; Value: 84.7; Range: 36.0-66.0; Abnormal: Above high normal; Units: %; Status: F Test: LYMPH %; Value: 7.9; Range: 24.0-44.0; Abnormal: Below low normal; Units: %; Status: F Test: MONO %; Value: 5.2; Range: 0.0-5.0; Abnormal: Above high normal; Units: %; Status: F Test: EOS %; Value: 1.1; Range: 0.0-3.0; Units: %; Status: F Test: BASO %; Value: 0.7; Range: 0.0-1.0; Units: %; Status: F Test: LARGE UNSTAINED CELL %; Value: 0.5; Range: 0.0-4.0; Units: %; Status: F Test: NEUTROPHILS #; Value: 12.1; Range: 1.8-7.7; Abnormal: Above high normal; Units: K/mm3; Status: F Test: LYMPH #; Value: 1.2; Range: 1.5-6.5; Abnormal: Below low normal; Units: K/mm3; Status: F Test: MONO #; Value: 0.7; Range: 0.0-0.8; Units: K/mm3; Status: F Test: EOS #; Value: 0.2; Range: 0.0-0.50; Units: K/mm3; Status: F Test: BASO #; Value: 0.1; Range: 0.0-0.2; Units: K/mm3; Status: F Test: LARGE UNSTAINED CELL #; Value: 0.1; Range: 0.0-0.4; Units: K/mm3; Status: F Lab Order: Lipase; SPEC'M 10/03/16 07:55 Test: LIPASE; Value: 104; Range: 73-393; Units: U/L; Status: F Lab Order: Liver Profile; SPEC'M 10/03/16 07:55 Test: AST/SGOT; Value: 12; Range: 15-37; Abnormal: Below low normal; Units: U/L; Status: F Test: ALT/SGPT; Value: 19; Range: 12-78; Units: U/L; Status: F Test: ALKALINE PHOSPHATASE; Value: 80; Range: 45-117; Units: U/L; Status: F Test: BILIRUBIN,TOTAL; Value: 0.6; Range: 0.2-1.0; Units: MG/DL; Status: F Test: BILIRUBIN,DIRECT; Value: 0.1; Range: 0.0-0.2; Units: MG/DL; Status: F Test: TOTAL PROTEIN; Value: 7.5; Range: 6.4-8.2; Units: GM/DL; Status: F Test: ALBUMIN; Value: 3.8; Range: 3.2-5.2; Units: GM/DL; Status: F Test: ALBUMIN/GLOBULIN RATIO; Value: 1.03; Range: 1.00-1.93; Status: F Lab Order: Urinalysis; SPEC'M 10/03/16 07:45 Test: APPEARANCE, URINE; Value: CLEAR; Range: CLEAR; Status: F Test: COLOR, URINE; Value: YELLOW; Range: YELLOW; Status: F Test: PH,URINE; Value: 5.0; Range: 5.0-9.0; Units: UNITS; Status: F Test: SPECIFIC GRAVITY URINE AUTO; Value: 1.019; Range: 1.002-1.035; Status: F Test: PROTEIN, URINE AUTO; Value: 1+; Range: NEGATIVE; Abnormal: Above high normal; Units: mg/dL; Status: F Test: GLUCOSE, URINE (UA) AUTO; Value: NEGATIVE; Range: NEGATIVE; Units: mg/dL; Status: F Test: KETONE, URINE AUTO; Value: NEGATIVE; Range: NEGATIVE; Units: mg/dL; Status: F Test: UROBILINOGEN, URINE AUTO; Value: 0.2; Range: 0.0-2.0; Units: mg/dL; Status: F Test: BILIRUBIN, URINE AUTO; Value: NEGATIVE; Range: NEGATIVE; Status: F Test: NITRITE, URINE AUTO; Value: NEGATIVE; Range: NEGATIVE; Status: F Test: LEUKOCYTE ESTERASE, URINE AUTO; Value: NEGATIVE; Range: NEGATIVE; Status: F Test: BLOOD, URINE BLOOD; Value: NEGATIVE; Range: NEGATIVE; Status: F Test: WBC, URINE AUTO; Value: 1; Range: 0-3; Units: /HPF; Status: F Test: RBC, URINE AUTO; Value: 1; Range: 0-3; Units: /HPF; Status: F Test: BACTERIA, URINE AUTO; Value: NEGATIVE; Range: NEGATIVE; Status: F Test: SQUAMOUS EPITHELIAL CELL UR AU; Value: 2; Range: 0-6; Units: /HPF; Status: F Test: MUCUS, URINE; Value: SMALL; Range: NEGATIVE; Status: F Test: HYALINE CAST, URINE AUTO; Value: 0; Range: 0-1; Units: /LPF; Status: F Outcome: 09:36 CT Study completed. ttb 11:10 Decision to Hospitalize by Provider. cc10 12:14 Discharge Assessment: Patient awake, alert and oriented x 3. No cognitive and/or ttb functional deficits noted. Patient verbalized understanding of disposition instructions. Patient awake and alert. patient administered narcotics - yes. Patient was admitted to the hospital or transferred to another facility. The following High Risk Discharge criteria are identified: Yes, admit to OR at this time. SDS. Admitted to OR accompanied by nurse, accompanied by tech, family with patient, via stretcher, with chart. Condition: good Condition: stable Condition: improved. Instructed on OR process/SDS process. Admission hand-off: Other: verbal to OR staff . Property given to family member, Alex ANDRES. 12:18 Patient left the ED. ttb Signatures: Dispatcher [employer] EDCatalina Gonzáles, RN RN Tutu Suarez jml1 Albina Neves RN RN ttb Lacey Putnam mm15 Roni Guthrie PAKdC PA-C cc10 Arlet Mckinley, Reg Reg hs2 Milly Cuevas Brittney, [employer] bnb Chart Complete MTDD
== END 2016-10-03 17:25 | disposition home or self-care (01) ==
LOC: M ED 07:20 → M SDC 11:00 → M PED 14:00 → M SDC 17:25
PROVIDERS: ATTEND Surgery
DX: K35.89 Other acute appendicitis (principal); Z79.899 Other long term (current) drug therapy
CPT/HCPCS: 36415; 44970; 74177; 80048; 80076; 81001; 81025; 83690; 85025; 88304; 96361; 96365; 96375; 99285; J0330; J0690; J1100; J1885; J2250; J2405; J2543; J3010; Q9967

== ENCOUNTER → 2019-06-09 | Outpatient (REF) | payer OTHER, MEDICAID ==
[~2019-06-09] MED LIST: IBUPOTC PO; NORC1TAB7 PO; [UNRECOGNIZED DRUG - REMARK] PO
[2019-06-09 22:04] LABS: CHLAMYDIA DNA AMPLIFICATION NEGATIVE (NEGATIVE); GC DNA AMPLIFICATION NEGATIVE (NEGATIVE)
== END ==
LOC: M SFHCLERA 12:09
PROVIDERS: ATTEND Physician Assistant
DX: R31.9 Hematuria, unspecified (principal); R30.0 Dysuria